=== PATIENT | female | born 1955 | race Hispanic/Latino ===

== ENCOUNTER → 2024-11-20 | Outpatient (CLI) | payer MEDICARE ==
--- NOTE | 2024-11-24 11:25 | HMCSR ---
APPROVED REPORT EXAM: Two-dimensional and M-mode echocardiogram with Doppler and color Doppler. INDICATION ICD: Shortness of breath R06.02 2D Dimensions RVDd3.3 cmLVEF(%)55.0 (>50%)LVED Vol(simp.)108.0 mL IVSd0.9 (0.7-1.1cm)FS(%)29 %LVES Vol(simp.)45.0 mL LVDd5.7 (3.8-5.6cm)Ao Root(2D)2.8 (2.0-3.7cm)LVEF(%, simp.)58 % PWd1.0 (0.7-1.1cm)LVOT diam2.0 (1.8-2.4cm)LA ESV INDEX (BP)33.07 mL/m2 LVDs3.7 (2.5-4.0cm)IVC diam1.7 cm PWs1.0 cm Aortic Valve AoV Vmax1.4 m/Keshawn Peak GR7.6 mmHgLVOT Vmax0.9 m/s AoV VTI0.3 mAo Mean GR4.0 mmHgLVOT VTI0.26 m GABRIELLA (VMAX)2.67 cm2Al P1/2T580 msAVA (VTI) 2.7 cm2 Mitral Valve MV E Vmax55.2 cm/sDECEL Ifvu956 ms MV A Vmax69.7 cm/s E/A ratio0.8 MR Max PG28 mmHg TDI E/E' Medial8.2E/E' Lateral9.0 Lateral E' Peak V6.13 cm/s Pulmonary Valve PV Vmax0.8 m/sPV VTI0.19 mPV Mean GR1.0 mmHg PV Peak GR2.5 mmHgPI End Ada. Ebenezer 0.7 cm/s Tricuspid Valve TR Vmax1.4 m/sRAP (EST) 8 wzEnSMSL96.1 mmHg TR Peak GR8.1 mmHg Left Ventricle The left ventricle is mildly dilated. There is normal LV segmental wall motion. There is normal left ventricular wall thickness. LVEF is 55-60%. No left ventricle thrombus noted on this study. Stage I d iastolic dysfunction. Right Ventricle The right ventricle is normal size. The right ventricular systolic function is normal. Atria The left atrium size is normal. The right atrium size is normal. Aortic Valve Aortic valve is trileaflet. Aortic valve leaflets are sclerotic but open well. Mild to moderate aorti c regurgitation. There is no aortic valvular stenosis. Mitral Valve Mitral valve leaflets are sclerotic but open well. Mitral regurgitation is trace. There is no mitral valve stenosis. Tricuspid Valve The tricuspid valve leaflets appear normal. There is trace tricuspid regurgitation. Pulmonic Valve Pulmonic valve is not well visualized. There is trace pulmonic valvular regurgitation. Great Vessels The aortic root is normal in size. IVC is dilated and collapses >50% with inspiration. Pericardium No pericardial effusion. Conclusion The left ventricle is mildly dilated. LVEF is 55-60%. Stage I diastolic dysfunction. The right ventricle is normal size. The left atrium size is normal. Aortic valve is trileaflet. Aortic valve leaflets are sclerotic but open well. Mild to moderate aortic regurgitation. Mitral valve leaflets are sclerotic but open well. Mitral regurgitation is trace. There is no mitral valve stenosis. There is trace tricuspid regurgitation. There is trace pulmonic valvular regurgitation. The aortic root is normal in size. IVC is dilated and collapses >50% with inspiration. No pericardial effusion.
== END | disposition home or self-care (01) ==
LOC: SHCH 12:06
PROVIDERS: ATTEND Internal Medicine Cardiovascular Disease
DX: I08.0 Rheumatic disorders of both mitral and aortic valves (principal); R06.02 Shortness of breath
CPT/HCPCS: 93306